=== PATIENT | male | born 1995 | race Caucasian/White ===

== ENCOUNTER 2019-02-15 20:18 | Emergency (ER) | payer MEDICAID ==
[~2019-02-15] VITALS: Ht 193 cm; Wt 86.4 kg
[~2019-02-15 20:18] MED LIST: ALPR-624 GT; BAC10T GT; CARB1TAB36 GT; EFF25T GT; MELOTONIN GT; RANI15SY19 GT; TRIH2TAB3 GT; [UNRECOGNIZED DRUG - CODE] GT; [UNRECOGNIZED DRUG - CODE] GT
[2019-02-15] MEDS ORDERED: acetaminophen 325mg tablet PO ONE (21:25)
--- NOTE | 2019-02-15 22:00 | NUR ---
UNABLE TO GET EKG SECONDARY TO IMPLANTED DBS - MOTHER DOESN'T HAVE DEVICE TO TURN OFF STIMULATOR AND ALL THAT WILL SHOW IS ARTIFACT IF IT IS STILL ON. MD RIVERA
[2019-02-15 22:44] LABS: BASOPHILS % (AUTO) 0.2 % (0-1); EOSINOPHILS % (AUTO) 0.1 % (0-6); HEMATOCRIT 46.6 % (42.0-52.0); HEMOGLOBIN 15.2 g/dl (14.0-17.9); LYMPHOCYTES # (AUTO) 0.5 X10'3 (1.1-4.8); LYMPHOCYTES % (AUTO) 6.3 % (21-51); MEAN CORPUSCULAR HEMOGLOBIN 30.8 PG (27.0-31.0); MEAN CORPUSCULAR HGB CONC 32.6 g/dL (33.0-36.5); MEAN CORPUSCULAR VOLUME 94.4 FL (78-98); MEAN PLATELET VOLUME 10.4 FL (7.4-10.4); MONOCYTES # (AUTO) 0.4 X10'3 (0-0.9); MONOCYTES % (AUTO) 5.1 % (2-12); NEUTROPHILS # (AUTO) 7.2 X10'3 (1.8-7.7); NEUTROPHILS % (AUTO) 88.3 % (42-75); PLATELET COUNT 133 X10'3 (140-440); RED BLOOD COUNT 4.93 X10'6 (4.70-6.10); RED CELL DISTRIBUTION WIDTH 13.2 % (11.5-14.5); WHITE BLOOD COUNT 8.2 X10'3 (4.5-11.0)
[2019-02-15 22:52] LABS: ALANINE AMINOTRANSFERASE 18 U/L (12-78); ALBUMIN 4.3 G/DL (3.4-5.0); ALKALINE PHOSPHATASE 122 IU/L (46-116); ANION GAP 7 (8-16); ASPARTATE AMINO TRANSFERASE 21 U/L (10-37); BILIRUBIN,TOTAL 0.4 MG/DL (0.1-1.0); BLOOD UREA NITROGEN 16 MG/DL (7-18); CALCIUM 9.8 MG/DL (8.5-10.1); CHLORIDE 103 MMOL/L (99-107); GLUCOSE 114 MG/DL (70-104); MAGNESIUM 2.1 MG/DL (1.5-2.4); POTASSIUM 3.7 MMOL/L (3.5-5.1); SODIUM 141 MMOL/L (135-145); TOTAL CARBON DIOXIDE 31.2 MMOL/L (24-32); TOTAL PROTEIN 8.7 G/DL (6.4-8.2); eGFR > 90 ML/MIN
[2019-02-15] MEDS ORDERED: ibuprofen 100 MG/5 ML oral susp GT ONE (23:30)
[2019-02-15] MEDS ORDERED: ibuprofen tablet 400 MG TABLET PO ONE (23:30)
[2019-02-16 01:46] VITALS: BP 120/64
== END 2019-02-16 01:47 | disposition home or self-care (01) ==
LOC: ER 20:18
DX: R50.9 Fever, unspecified (principal); Z79.899 Other long term (current) drug therapy
CPT/HCPCS: 36415; 71045; 80053; 83605; 83735; 83880; 84145; 85025; 87040; 93005; 99284

== ENCOUNTER 2020-01-24 14:02 | Emergency (ER) | payer MEDICAID ==
[~2020-01-24] VITALS: Ht 193 cm; Wt 77.3 kg
[2020-01-24] MEDS ORDERED: ibuprofen 200mg tablet PO ONE (14:10)
[2020-01-24 14:37] LABS: CLARITY,URINE CLEAR (Clear); COLOR,URINE STRAW (Yellow); GLUCOSE, URINE NEGATIVE (Neg); KETONES,URINE NEGATIVE (Neg); LEUKOCYTE ESTERASE ,URINE NEGATIVE (Neg); NITRITES, URINE NEGATIVE (Neg); OCCULT BLOOD,URINE NEGATIVE (Neg); PH,URINE 6.5 (4.8-8.0); PROTEIN,URINE NEGATIVE (Neg); UA COLLECTION TYPE VOIDED; UROBILINOGEN,URINE 0.2 E.U/dL (0.2-1.0)
[2020-01-24 14:51] LABS: BASOPHILS % (AUTO) 0.3 % (0-1); EOSINOPHILS % (AUTO) 0.1 % (0-6); HEMATOCRIT 44.4 % (42.0-52.0); HEMOGLOBIN 14.9 g/dl (14.0-17.9); LYMPHOCYTES # (AUTO) 0.3 X10'3 (1.1-4.8); LYMPHOCYTES % (AUTO) 3.7 % (21-51); MEAN CORPUSCULAR HEMOGLOBIN 31.7 PG (27.0-31.0); MEAN CORPUSCULAR HGB CONC 33.5 g/dL (33.0-36.5); MEAN CORPUSCULAR VOLUME 94.7 FL (78-98); MEAN PLATELET VOLUME 10.1 FL (7.4-10.4); MONOCYTES # (AUTO) 0.5 X10'3 (0-0.9); MONOCYTES % (AUTO) 7.7 % (2-12); NEUTROPHILS # (AUTO) 6.3 X10'3 (1.8-7.7); NEUTROPHILS % (AUTO) 88.2 % (42-75); PLATELET COUNT 146 X10'3 (140-440); RED BLOOD COUNT 4.69 X10'6 (4.70-6.10); RED CELL DISTRIBUTION WIDTH 12.9 % (11.5-14.5); WHITE BLOOD COUNT 7.1 X10'3 (4.5-11.0)
[2020-01-24 15:03] LABS: PARTIAL THROMBOPLASTIN TIME 29 SECONDS (22-32)
[2020-01-24 15:07] LABS: ALANINE AMINOTRANSFERASE 19 U/L (12-78); ALBUMIN/GLOBULIN RATIO 0.9 (1.1-1.5); ALKALINE PHOSPHATASE 117 IU/L (46-116); ANION GAP 10 (8-16); ASPARTATE AMINO TRANSFERASE 30 U/L (10-37); BILIRUBIN,TOTAL 0.5 MG/DL (0.1-1.0); BLOOD UREA NITROGEN 12 MG/DL (7-18); BUN/CREATININE RATIO 14.1 (5.4-32.0); CALCIUM 9.3 MG/DL (8.5-10.1); CHLORIDE 106 MMOL/L (99-107); CREATININE 0.85 MG/DL (0.60-1.10); GLUCOSE 111 MG/DL (70-104); POTASSIUM 3.7 MMOL/L (3.5-5.1); SODIUM 144 MMOL/L (135-145); TOTAL CARBON DIOXIDE 28.2 MMOL/L (24-32); TOTAL PROTEIN 8.3 G/DL (6.4-8.2); eGFR > 90 ML/MIN
[2020-01-24] MEDS ORDERED: oseltamivir phos 75mg capsule PO ONE (16:20)
[2020-01-24] MEDS ORDERED: OSEL6SUS4 PO (16:25)
[2020-01-24 16:39] VITALS: BP 115/62
== END 2020-01-24 16:41 | disposition home or self-care (01) ==
LOC: ER 14:02
DX: J11.1 Influenza due to unidentified influenza virus with other respiratory manifestations (principal); Z79.899 Other long term (current) drug therapy
CPT/HCPCS: 36415; 71045; 80053; 81003; 83605; 84145; 85025; 85610; 85730; 87040; 99284

== ENCOUNTER 2020-01-30 03:01 | Emergency (ER) | payer MEDICAID ==
[~2020-01-30] VITALS: Ht 182.9 cm; Wt 81.8 kg
[~2020-01-30 03:01] MED LIST changes: +OSEL6SUS4 PO
[2020-01-30 03:57] LABS: BASOPHILS % (AUTO) 0.5 % (0-1); EOSINOPHILS # (AUTO) 0.1 X10'3 (0-0.9); EOSINOPHILS % (AUTO) 1.8 % (0-6); HEMATOCRIT 40.7 % (42.0-52.0); LYMPHOCYTES # (AUTO) 1.3 X10'3 (1.1-4.8); LYMPHOCYTES % (AUTO) 20.4 % (21-51); MEAN CORPUSCULAR HEMOGLOBIN 32.1 PG (27.0-31.0); MEAN CORPUSCULAR HGB CONC 34.4 g/dL (33.0-36.5); MEAN CORPUSCULAR VOLUME 93.3 FL (78-98); MEAN PLATELET VOLUME 9.7 FL (7.4-10.4); MONOCYTES # (AUTO) 0.5 X10'3 (0-0.9); NEUTROPHILS # (AUTO) 4.3 X10'3 (1.8-7.7); NEUTROPHILS % (AUTO) 69.3 % (42-75); PLATELET COUNT 161 X10'3 (140-440); RED BLOOD COUNT 4.36 X10'6 (4.70-6.10); RED CELL DISTRIBUTION WIDTH 12.6 % (11.5-14.5); WHITE BLOOD COUNT 6.2 X10'3 (4.5-11.0)
[2020-01-30 04:21] LABS: ALANINE AMINOTRANSFERASE 27 U/L (12-78); ALBUMIN 3.6 G/DL (3.4-5.0); ALBUMIN/GLOBULIN RATIO 0.9 (1.1-1.5); ALKALINE PHOSPHATASE 87 IU/L (46-116); ANION GAP 3 (8-16); ASPARTATE AMINO TRANSFERASE 22 U/L (10-37); BILIRUBIN,TOTAL 0.4 MG/DL (0.1-1.0); BLOOD UREA NITROGEN 12 MG/DL (7-18); BUN/CREATININE RATIO 17.1 (5.4-32.0); CALCIUM 9.1 MG/DL (8.5-10.1); CHLORIDE 108 MMOL/L (99-107); GLUCOSE 100 MG/DL (70-104); POTASSIUM 3.5 MMOL/L (3.5-5.1); SODIUM 145 MMOL/L (135-145); TOTAL CARBON DIOXIDE 33.8 MMOL/L (24-32); TOTAL PROTEIN 7.5 G/DL (6.4-8.2); eGFR > 90 ML/MIN
[2020-01-30 04:24] LABS: TROPONIN I < 0.04 NG/ML (0.0-0.05)
--- NOTE | 2020-01-30 06:33 | NUR ---
ultra sound at the bedside
[2020-01-30 06:39] VITALS: BP 120/77
--- NOTE | 2020-01-30 06:52 | NUR ---
PT'S MOTHER AT BEDSIDE AND WILL BE GIVING HIM HIS MEDICATIONS THAT ARE DUE AT 7AM. DR ALEXANDER AWARE AND HAS GIVEN HIS OK FOR THAT.
--- NOTE | 2020-01-30 07:51 | NUR ---
WAITING FOR RESULTS OF 3 HOUR TROP
--- NOTE | 2020-01-30 08:25 | NUR ---
MOM SIGNS MEDICAL RELEASE FORMS. PT'S W/C IN ROOM AND MOM IS ABLE TO TRANSFER PT FROM [facility] TO W/C. STATES SHE IS OK WITH DOING IT BY HERSELF. SHE DOES IT ALL THE TIME.
== END 2020-01-30 08:29 | disposition home or self-care (01) ==
LOC: ER 03:01
DX: R07.89 Other chest pain (principal); K80.20 Calculus of gallbladder without cholecystitis without obstruction; Z98.890 Other specified postprocedural states; Z79.899 Other long term (current) drug therapy
CPT/HCPCS: 36415; 71045; 71250; 76700; 80053; 84484; 85025; 93005; 99285

== ENCOUNTER 2020-08-31 01:51 | Emergency (ER) | payer MEDICAID ==
[~2020-08-31] VITALS: Ht 175.3 cm; Wt 73.0 kg
[~2020-08-31 01:51] MED LIST changes: -EFF25T GT; -OSEL6SUS4 PO; +VENL25TA48 GT
--- NOTE | 2020-08-31 02:04 | NUR ---
AT BEDSIDE. LINE INITIATED BY RAYMUNDO HOLM, LABS COLLECTED. POISON CONTROL CONTACTED.
[2020-08-31] MEDS ORDERED: normal saline 1000ML IV soln IVB ONE (02:05)
--- NOTE | 2020-08-31 02:07 | NUR ---
POISON CONTROL: BAIL BONDSMAN, RSP DEPRESSION, SEIZURES, BRADYCARDIA, HYPOTENSION TYL, ASA, ETOH, EKG, METABOLIC PANEL 6 HOUR WATCH AIRWAY MANAGEMENT AND SEIZURE PRECAUTION
[2020-08-31 02:19] LABS: BASOPHILS % (AUTO) 0.4 % (0-1); EOSINOPHILS # (AUTO) 0.1 X10'3 (0-0.9); EOSINOPHILS % (AUTO) 1.5 % (0-6); HEMATOCRIT 44.8 % (42.0-52.0); HEMOGLOBIN 14.9 g/dl (14.0-17.9); LYMPHOCYTES % (AUTO) 13.7 % (21-51); MEAN CORPUSCULAR HEMOGLOBIN 31.6 PG (27.0-31.0); MEAN CORPUSCULAR HGB CONC 33.2 g/dL (33.0-36.5); MEAN CORPUSCULAR VOLUME 95.1 FL (78-98); MEAN PLATELET VOLUME 10.2 FL (7.4-10.4); MONOCYTES # (AUTO) 0.5 X10'3 (0-0.9); MONOCYTES % (AUTO) 6.9 % (2-12); NEUTROPHILS # (AUTO) 5.4 X10'3 (1.8-7.7); NEUTROPHILS % (AUTO) 77.5 % (42-75); PLATELET COUNT 150 X10'3 (140-440); RED BLOOD COUNT 4.71 X10'6 (4.70-6.10); RED CELL DISTRIBUTION WIDTH 12.7 % (11.5-14.5)
[2020-08-31 02:29] LABS: ALANINE AMINOTRANSFERASE 23 U/L (12-78); ALBUMIN/GLOBULIN RATIO 1.1 (1.1-1.5); ALKALINE PHOSPHATASE 108 IU/L (46-116); ANION GAP 7 (8-16); ASPARTATE AMINO TRANSFERASE 18 U/L (10-37); BILIRUBIN,TOTAL 0.3 MG/DL (0.1-1.0); BLOOD UREA NITROGEN 15 MG/DL (7-18); BUN/CREATININE RATIO 18.8 (5.4-32.0); CALCIUM 9.8 MG/DL (8.5-10.1); CHLORIDE 104 MMOL/L (99-107); GLUCOSE 99 MG/DL (70-104); POTASSIUM 3.7 MMOL/L (3.5-5.1); SODIUM 142 MMOL/L (135-145); TOTAL CARBON DIOXIDE 31.4 MMOL/L (24-32); TOTAL PROTEIN 7.8 G/DL (6.4-8.2); eGFR > 90 ML/MIN
[2020-08-31 02:40] LABS: ACETAMINOPHEN < 2.0 UG/ML (10-30); ETHANOL < 0.010 GM/DL (0.0-0.010)
[2020-08-31] MEDS ORDERED: MELA5TAB12 GT (03:23)
[2020-08-31] MEDS ORDERED: CLON-528 PO (03:23)
[2020-08-31] MEDS ORDERED: PANT500T PO (03:23)
[2020-08-31] MEDS ORDERED: CLON-527 PO (03:23)
[2020-08-31] MEDS ORDERED: CLON-527 GT ×2 (03:31)
--- NOTE | 2020-08-31 04:38 | NUR ---
ASSUMED CARE OF PT. 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
--- NOTE | 2020-08-31 05:54 | NUR ---
Patient resting in bed with no s/s of distress or pain. pt easily aroused from sleep and answers questions appropriately through nods and tablet. pt provided with warm blankets. pt given urinal. pt unable to pee. MD Riggs informed. does not request a straight cath sample at this point for UA.
--- NOTE | 2020-08-31 06:26 | NUR ---
in bed resting at this time
[2020-08-31] MEDS ORDERED: [UNRECOGNIZED DRUG - OTHER] GT (07:08)
[2020-08-31] MEDS ORDERED: iron sulfate GT (07:08)
--- NOTE | 2020-08-31 07:42 | NUR ---
in bed resting rise and fall of chest noted
[2020-08-31] MEDS ORDERED: [UNRECOGNIZED DRUG - CODE] PO (07:48)
[2020-08-31] MEDS ORDERED: PANTOTHENIC ACID PO SCH ×2 (07:56→20:00)
[2020-08-31] MEDS ORDERED: [UNRECOGNIZED DRUG - OTHER] PO SCH (08:00)
[2020-08-31] MEDS ORDERED: clonazePAM 1mg tablet PO SCH ×2 (08:00→16:00)
[2020-08-31] MEDS: baclofen 10mg tablet PO SCH ×2 (08:00→13:40)
[2020-08-31] MEDS ORDERED: IRON SULFATE PO SCH (08:00)
[2020-08-31] MEDS ORDERED: lactose-reduced food (Ensure High Protein) 237ml bottle GT SCH ×2 (08:00→10:11)
[2020-08-31 08:53] LABS: URINE AMPHETAMINE SCREEN NEGATIVE (Neg); URINE BARBITUATE SCREEN NEGATIVE (Neg); URINE BENZODIAZEPINES SCREEN NEGATIVE (Neg); URINE CANNABINOID SCREEN NEGATIVE (Neg); URINE COCAINE SCREEN NEGATIVE (Neg); URINE METHADONE SCREEN NEGATIVE (Neg); URINE OPIATE SCREEN NEGATIVE (Neg); URINE PHENCYCLIDINE SCREEN NEGATIVE (Neg)
[2020-08-31] MEDS ORDERED: ferrous sulfate 325mg tablet PO SCH ×2 (08:54→10:10)
[2020-08-31] MEDS ORDERED: [UNRECOGNIZED DRUG - OTHER] PO SCH ×2 (08:58→19:00)
[2020-08-31] MEDS: carbidoba-levodopa 25-100mg tablet GT SCH ×2 (09:49→13:40)
[2020-08-31] MEDS: trihexyphenidyl 2mg tablet PO SCH ×2 (09:49→13:40)
--- NOTE | 2020-08-31 10:17 | NUR ---
meds given and repostioned
[2020-08-31 12:24] VITALS: BP 104/62
--- NOTE | 2020-08-31 12:25 | NUR ---
in bed resting rise and fall of chest noted no s/s of distress
--- NOTE | 2020-08-31 15:46 | NUR ---
[employer]AL WORKER TALKED TO PT PLAN IS TO TALK TO MOM AND DISCHARGE HIM HOME
[2020-08-31] MEDS ORDERED: Melatonin 3mg tablet PO SCH (21:00)
== END 2020-08-31 17:05 | disposition home or self-care (01) ==
LOC: ER 01:51
DX: T42.8X2A Poisoning by antiparkinsonism drugs and other central muscle-tone depressants, intentional self-harm, initial encounter (principal); R45.851 Suicidal ideations; Z79.899 Other long term (current) drug therapy; Y92.89 Other specified places as the place of occurrence of the external cause
CPT/HCPCS: 36415; 80053; 80305; 80320; 80329; 84443; 85025; 96360; 99285; J7030